=== PATIENT | male | born 1995 | race Caucasian/White ===

== ENCOUNTER 2018-03-25 09:11 | Emergency (ER) | payer MEDICAID ==
[~2018-03-25] VITALS: Ht 177.8 cm; Wt 77.3 kg
[2018-03-25] MEDS ORDERED: PERTUSS(ACELL),DIPH,TET VAC/PF 0.5 ML VIAL IM ONE (10:30)
[2018-03-25] MEDS ORDERED: LIDOCAINE HCL 2%/EPI 1:200,000/PF 20 ML VIAL INJ ONE (10:30)
[2018-03-25] MEDS ORDERED: CEPHALEXIN MONOHYDRATE 500 MG CAPSULE PO ONE (12:45)
[2018-03-25 12:50] VITALS: BP 126/79
== END 2018-03-25 12:52 | disposition home or self-care (01) ==
LOC: EMS 09:13
DX: S91.011A Laceration without foreign body, right ankle, initial encounter (principal); W45.8XXA Other foreign body or object entering through skin, initial encounter; Y93.89 Activity, other specified; Y92.69 Other specified industrial and construction area as the place of occurrence of the external cause; Y99.0 Civilian activity done for income or pay
CPT/HCPCS: 12002; 73610; 90471; 90715; 99284; J2001

== ENCOUNTER 2018-03-30 11:58 | Emergency (ER) | payer MEDICAID ==
[~2018-03-30] VITALS: Ht 160 cm; Wt 77.3 kg
[2018-03-30 13:39] VITALS: BP 128/85
== END 2018-03-30 13:42 | disposition home or self-care (01) ==
LOC: EMS 11:59
DX: S91.011D Laceration without foreign body, right ankle, subsequent encounter (principal); X58.XXXD Exposure to other specified factors, subsequent encounter
CPT/HCPCS: 99283

== ENCOUNTER 2018-04-04 10:08 | Emergency (ER) | payer MEDICAID ==
[~2018-04-04] VITALS: Ht 175.3 cm; Wt 77.3 kg
[2018-04-04 10:14] VITALS: BP 133/69
[2018-04-04] MEDS ORDERED: BACITRACIN 0.9 GM PACKET OINTMENT TP ONE (11:15)
== END 2018-04-04 11:40 | disposition home or self-care (01) ==
LOC: EMS 10:08
DX: S91.011D Laceration without foreign body, right ankle, subsequent encounter (principal); X58.XXXD Exposure to other specified factors, subsequent encounter
CPT/HCPCS: 99282